=== PATIENT | male | born 1995 | race Caucasian/White ===

== ENCOUNTER → 2017-06-25 | Outpatient (CLI) | payer OTHER ==
[~2017-06-25] MED LIST: GADOBENATE 529MG/1ML 15ML VIAL IVP ONE; LOR5/325 PO
--- NOTE | 2017-06-25 15:14 | RADIOLOGY IMAGING REPORT ---
FACILITY: [facility] PATIENT NAME: Shine Arec : 1995 MR: [id number] V: [id number] EXAM DATE: ORDERING PHYSICIAN: [facility] TECHNOLOGIST: Location: [facility] Patient: Shine Arce : 1995 Visit/Account:[id number] Date of Sevice: 06/25/2017 BRAIN MR W W/O CONTRAST Concussion without loss of consciousness, cognitive impairment, still causing traumatic brain injury May 2017 ADDITIONAL PERTINENT HISTORY: None. COMPARISON STUDIES: Head CT May 06, 2017 TECHNIQUE: Multi-planar, multi-sequence brain MRI was performed with and without IV contrast adminis tration. Contrast: 15 mL MultiHance FINDINGS: Ventricles / sulci / fissures: Negative. Masses / hemorrhage / midline shift: Negative. White matter: Negative. Pringle-white differentiation: Normal. Extra-axial fluid collections: Negative. Intracranial vasculature and dural sinuses: Negative. Skull base / calvarium: Negative. Visualized mastoid air cells / paranasal sinuses: Well aerated. Orbits: Negative. Upper neck:Negative. IMPRESSION: Unremarkable MR the brain with and without contrast Report Dictated By: Batsheva Javier MD at 06/25/2017 3:06 PM Report E-Signed By: Batsheva Javier MD at 06/25/2017 3:11 PM WSN:[id number]
== END ==
LOC: MRI 01:16
DX: R42 Dizziness and giddiness (principal); R41.89 Other symptoms and signs involving cognitive functions and awareness
CPT/HCPCS: 70553; A9577